=== PATIENT | male | born 1955 | race Caucasian/White ===

== ENCOUNTER 2019-04-06 00:01 | Inpatient (IN) | payer OTHER ==
[~2019-04-06] VITALS: Ht 175.3 cm; Wt 68.5 kg
[~2019-04-06 00:01] MED LIST: ADVAIR 250-501 EACH INH; ALBUTEROL SULFAT2 MG PO; IPRATROPIU0.2 MG/1 M INH; LEVALBUTER1.25 MG/0. INH; MUCINEX1200 MG PO; PREDNISONE 10 M10 M1 PO; PREDNISONE 5 MG5 MG PO; PROAIR HFA8.5 GM INH; SINGULAIR 10 MG10 M1 PO
[2019-04-06 00:26] VITALS: BP 127/88
[2019-04-06 00:26] LABS: ABSOLUTE BASOPHILS 0.1 thou/uL (0.0-0.2); ABSOLUTE EOSINOPHILS 0.1 thou/uL (0.0-0.7); ABSOLUTE LYMPHOCYTES 1.6 thou/uL (0.8-5.3); ABSOLUTE MONOCYTES 1.9 thou/uL (0.0-1.2); ABSOLUTE NEUTROPHILS 14.5 thou/uL (1.6-8.1); BASOPHILS 0.6 %; EOSINOPHILS 0.3 %; HEMOGLOBIN 14.4 gm/dL (14.0-18.0); MCH 29.1 pg (26.0-34.0); MCHC 32.9 g/dL (28.0-37.0); MCV 88.7 fL (80.0-100.0); MONOCYTES 10.3 %; MPV 8.2 fl. (7.2-11.1); NUCLEATED RBCS 0 /100WBC; PLATELET COUNT* 303 thou/uL (150-400); POLYS 79.8 %; RBC 4.96 mil/uL (4.50-6.00); RDW-CV 13.6 % (10.5-14.5); WBC 18.2 thou/uL (4.0-11.0)
[2019-04-06 00:28] LABS: BE -0.9 mmol/L (-2 to +3); PO2 86.9 mmHg (75.0-100.0)
[2019-04-06 00:30] LABS: PCO2 58.1 mmHg (35.0-45.0); pH 7.286 (7.340-7.450)
[2019-04-06 00:33] LABS: APTT 30.8 Seconds (25.0-31.3); INR 1.2; PROTIME 11.9 Seconds (9.20-11.50)
[2019-04-06 00:34] LABS: ANION GAP 11 mmol/L (7-16); BUN 18 mg/dL (7-18); CALCIUM 9.2 mg/dL (8.5-10.1); CHLORIDE 102 mmol/L (98-107); CO2 28 mmol/L (21-32); CREATININE 0.9 mg/dL (0.6-1.3); GLUCOSE 151 mg/dL (70-99); POTASSIUM 4.7 mmol/L (3.5-5.1); SODIUM 141 mmol/L (136-145)
[2019-04-06 00:51] LABS: ALBUMIN 3.5 g/dL (3.4-5.0); ALKALINE PHOSPHATASE 94 U/L (46-116); MAGNESIUM 2.1 mg/dL (1.8-2.4); SGOT 36 U/L (15-37); SGPT 34 U/L (30-65); TOTAL BILIRUBIN 0.9 mg/dL (<0.1-1.0); TOTAL PROTEIN 7.5 g/dL (6.4-8.2); TROPONIN-I LEVEL <0.06 ng/mL (<0.06)
[2019-04-06 07:52] VITALS: BP 101/71
--- NOTE | 2019-04-06 11:41 | 2DMMODE ---
[place] [address] 2 D/M-MODE ECHOCARDIOGRAM Name: OVIDIOTHOM KHAN Room: [place] [address] ADM IN [facility]#: [id number] Admission: 04/06/19 Attend Phys: Franko Sanders Discharge: Date of : 53 Date of Service: 04/06/19 1141 Report #: [id number] THIS REPORT FOR: //name// APPROVED REPORT Study performed: 04/06/2019 09:07:31 EXAM: Comprehensive 2D, Doppler, and color-flow Echocardiogram Patient Location: In-Patient Room #: er Status: routine BSA: 2.02 HR: 104 bpm BP: 101/71 mmHg Rhythm: NSR Other Information Technically limited study due to subcostal views only. Indications Dyspnea 2D Dimensions IVSd: 9.27 (7-11mm) LVOT Diam: 21.74 (18-24mm) LVDd: 46.75 mm PWd: 11.31 (7-11mm) LVDs: 30.07 (25-40mm) Aortic Root: 41.02 mm Aortic Valve AoV Peak Weor.: 0.97 m/s AO Peak Gr.: 3.78 mmHg LVOT Max P.24 mmHg AO Mean Gr.: 2.11 mmHg LVOT Mean P.03 mmHg LVOT Max V: 0.75 m/s AO V2 VTI: 13.50 cm LVOT Mean V: 0.46 m/s DEENA (VTI): 2.91 cm2 LVOT V1 VTI: 10.57 cm Mitral Valve E/A Ratio: 0.82 MV Decel. Time: 150.91 ms MV E Max Wero.: 0.69 m/s MV PHT: 43.76 ms MVA (PHT): 5.03 [place]2 [place] [address] 2 D/M-MODE ECHOCARDIOGRAM Name: THOM NOLAN Room: [address] IN [facility]#: [id number] Admission: 04/06/19 Attend Phys: Franko Sanders Discharge: Date of : 53 Date of Service: 04/06/19 1141 Report #: [id number] Pulmonary Valve PV Peak Wero.: 0.82 m/s PV Peak Gr.: 2.70 mmHg Tricuspid Valve RAP Estimate: 5.00 mmHg TR Peak Gr.: 26.23 mmHg RVSP: 31.00 mmHg PA Pressure: 31.00 mmHg Left Ventricle The left ventricle is normal size. There is normal LV segmental wall motion. There is normal left ventricular wall thickness. Left ventricular systolic function is normal. The left ventricular ejection fraction is within the normal range. LVEF is 50-55%. Grade I - abnormal relaxation pattern. Right Ventricle The right ventricle is normal size. The right ventricular systolic function is normal. Atria The left atrium size is normal. The right atrium size is normal. Aortic Valve Mild aortic valve sclerosis. No aortic regurgitation is present. There is no aortic valvular stenosis. Mitral Valve The mitral valve is normal in structure. There is no mitral valve regurgitation noted. No evidence of mitral valve stenosis. Tricuspid Valve The tricuspid valve is normal in structure. Trace tricuspid regurgitation Pulmonic Valve The pulmonary valve is normal in structure. There is no pulmonic valvular regurgitation. Great Vessels The aortic root is normal in size. IVC is normal in size and collapses >50% with inspiration. Pericardium There [place] [address] 2 D/M-MODE ECHOCARDIOGRAM Name: OVIDIOTOHM Brooke Room: [address] IN [facility].#: [id number] Admission: 04/06/19 Attend Phys: Franko Sanders Discharge: Date of : 53 Date of Service: 04/06/19 1141 Report #: [id number] <Conclusion> The left ventricle is normal size. There is normal left ventricular wall thickness. Left ventricular systolic function is normal. The left ventricular ejection fraction is within the normal range. LVEF is 50-55%. Grade I - abnormal relaxation pattern. The right ventricle is normal size. The left atrium size is normal. Mild aortic valve sclerosis. No aortic regurgitation is present. There is no aortic valvular stenosis. The mitral valve is normal in structure. The tricuspid valve is normal in structure. IVC is normal in size and collapses >50% with inspiration. There is no pericardial effusion. There is normal LV segmental wall motion. <ELECTRONICALLY SIGNED> By: Anthony Rose MD, FACC 04/06/19 1141 1141 1141 Anthony Rose MD, FACC /INF
[2019-04-06 12:00] VITALS: BP 95/66
[2019-04-06 14:54] VITALS: BP 101/65
[2019-04-06 15:10] VITALS: BP 125/80
[2019-04-06] MEDS ORDERED: CLARITIN10 MG PO (16:18)
--- NOTE | 2019-04-06 17:14 | EKG ---
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1955 Requested By: Bernie Ricci Order Number: [id number] MD: Mendoza Andrews Measurements Intervals [place] Rate: 151 P: 64 [place]: 116 QRS: 177 QRSD: 83 T: -32 QT: 257 QTc: 408 Interpretive Statements Sinus tachycardia Right axis deviation Borderline low voltage, extremity leads Abnormal R-wave progression, late transition Minimal ST depression, inferior leads Baseline wander in lead(s) V3 Compared to ECG 01/31/2011 09:51:47 Right-axis deviation now present ST (T wave) deviation now present Ventricular premature complex(es) no longer present Right superior axis no longer present Electronically Signed On 04-06-2019 17:14:47 CDT by Mendoza Andrews [email or web address] <ELECTRONICALLY SIGNED> By: Mendoza Andrews MD, [facility] 04/06/19 1714 0005 0005 Mendoza Andrews MD, [facility] /EPI
[2019-04-06 19:50] VITALS: BP 95/73
[2019-04-07 00:30] VITALS: BP 103/68
[2019-04-07 04:00] VITALS: BP 93/66
[2019-04-07 04:24] LABS: HEMATOCRIT 35.4 % (42.0-52.0); MCH 28.9 pg (26.0-34.0); MCHC 32.5 g/dL (28.0-37.0); MCV 89.1 fL (80.0-100.0); MPV 8.3 fl. (7.2-11.1); RBC 3.98 mil/uL (4.50-6.00); RDW-CV 13.5 % (10.5-14.5); WBC 13.8 thou/uL (4.0-11.0)
[2019-04-07 04:41] LABS: ALBUMIN 2.5 g/dL (3.4-5.0); CALCIUM 9.1 mg/dL (8.5-10.1); CREATININE 0.7 mg/dL (0.6-1.3); MAGNESIUM 2.4 mg/dL (1.8-2.4); POTASSIUM 4.6 mmol/L (3.5-5.1); TOTAL BILIRUBIN 0.2 mg/dL (<0.1-1.0); TOTAL PROTEIN 6.7 g/dL (6.4-8.2)
[2019-04-07 04:45] LABS: HEMOGLOBIN 11.5 gm/dL (14.0-18.0)
[2019-04-07 05:49] LABS: BE 2.7 mmol/L (-2 to +3); PCO2 48.1 mmHg (35.0-45.0); PO2 72.6 mmHg (75.0-100.0); pH 7.388 (7.340-7.450)
[2019-04-07 07:56] VITALS: BP 106/69
--- NOTE | 2019-04-07 09:57 | CON ---
[address] [address] CONSULTATION Name: THOM NOLAN Room: [address] IN .R.#: [id number] Admission: 04/06/19 Attend Phys: Ruth Robertson Discharge: Date of : 53 Report #: [id number] THIS REPORT FOR: //name// CC: Abraham Sanders REASON FOR CONSULTATION: COPD exacerbation. HISTORY OF PRESENT ILLNESS: This is a 63-year-old male patient who had been on oxygen 24/7 two-liter per minute for at least 2 years, maybe more per the . He has also portable oxygen device. He has history of COPD. He is an ex-smoker. He told me it was a while ago when he was evaluated by a pulmonary physician. Most of his care is through his primary care office. He presented to the hospital with few days history of increasing shortness of breath associated with some cough, although not severe and rare wheezes. He just feels fatigued and tired. He told me last week, he received a course of antibiotic and steroids. He improved temporarily, then this symptoms came back. He had low-grade fever around 100 at home per the patient's , but he had no chills. He has no sore throat, no nasal discharge or obstruction or symptoms suggestive of upper respiratory tract infection. He denied any sick contact. His told me that his respiratory status is limited and he does not leave house much because of his functional limitations. During my visit, he was on BiPAP and actually he was tolerating that well. He was protecting the airways and actually provides history through the BiPAP mask. ALLERGIES: No known allergies. HOME MEDICATIONS: He is on Mucinex, Singulair, prednisone daily, albuterol p.o. He is on Advair, ipratropium, ProAir and Xopenex. FAMILY HISTORY: Reviewed with the patient, noncontributory. SOCIAL HISTORY: He does not smoke anymore, although he has significant smoking history in the past, does not drink alcohol. Does not abuse drugs. He admitted that he tried some cannabis oil to help his breathing. PAST MEDICAL HISTORY: COPD, chronic respiratory failure, on home oxygen, emphysema. PAST SURGICAL HISTORY: No major chest surgery. REVIEW OF SYSTEMS: GENERAL: He had some feeling of fever and some change in appetite and weakness. EYES: No visual changes, no lacrimation, no redness, no eye pain. EAR, NOSE AND THROAT: He denied any sore throat, nasal discharge, obstruction, neck pain, dysphagia, [place] [address] CONSULTATION Name: THOM NOLAN Room: [address] IN ..#: [id number] Admission: 04/06/19 Attend Phys: Ruth Robertson Discharge: Date of : 53 Report #: [id number] RESPIRATORY: As above. Negative for hemoptysis. CARDIOVASCULAR: He had dyspnea on exertion, not feeling short of breath, but no palpitation, no chest pain, no edema in the lower extremities. GASTROINTESTINAL: He has no change in bowel habits, no diarrhea, no abdominal pain, no loose stools, no blood in the stools. GENITOURINARY: He had no frequency, no urgency, no discharge. MUSCULOSKELETAL: No deformities. No joint pain, no swelling. SKIN: He has no rash. NEUROLOGIC: He had no focal weakness. He had generalized weakness, but no numbness or tingling. HEMATOLOGIC AND LYMPHATIC: He had no palpable lymph nodes. No skin lumps or bumps. All systems reviewed with the patient, negative other than as mentioned above. PHYSICAL EXAMINATION: VITAL SIGNS: He was on BiPAP at 30%, saturation was 97% on the monitor, blood pressure 101/71, pulse rate of 99, temperature 37.1. GENERAL: He had BiPAP mask in place, but he was awake, alert, protecting the airways and conversing with his at the bedside. HEAD: Normocephalic, atraumatic. EYES: Pupils reactive to light. Not pale or jaundiced. External ear looks healthy and normal. Oral cavity not examined. I did not take the BiPAP mask off. NECK: Trachea is central. Full range of movement. No lymphadenopathy. CHEST: Diminished air movement bilaterally, prolonged expiratory phase, rare end-expiratory wheezes. No tenderness to palpation. HEART: S1, S2, no murmur. ABDOMEN: Benign, soft, lax, nontender, positive bowel sounds. No masses felt, no rebound, no rigidity. EXTREMITIES: Lower extremity: No edema, no calf tenderness. MUSCULOSKELETAL: Normal to inspection. No deformities. No joint swelling. PSYCHIATRIC: Mood and affect slightly anxious, but good insight and judgment. NEUROLOGIC: No focal weakness. SKIN: No rash. LYMPHATICS: No palpable lymph node. LABORATORY DATA: His chest x-ray that was done in the ER showed some basilar infiltrate versus atelectasis. His white blood count is 18.2, hemoglobin 14.4 and platelets of 303. His ABGs on the ____, 7./58/86 ____ was reported to be done on nasal cannula. His PT is 11.9, INR of 1. His creatinine is 0.9, BUN of 18, potassium 4.7, sodium 141. His troponin also is slightly elevated. IMPRESSION: [facility] [address] [place] [address] CONSULTATION Name: THOM NOLAN Room: [address] IN [facility].#: [id number] Admission: 04/06/19 Attend Phys: Ruth Robertson Discharge: Date of : 53 Report #: [id number] 1. Airtd-wu-nffesck hypoxic and hypercapnic respiratory failure. 2. Chronic obstructive pulmonary disease exacerbation. 3. Pulmonary infiltrate. 4. Atelectasis. PLAN: The patient with hypercapnic respiratory failure ____ with chronic respiratory failure. He will be admitted for management. He will be on scheduled IV steroids, scheduled nebulization treatments in addition to p.r.n. treatment. I agree with antibiotic given the pulmonary infiltrate; however, we need to monitor his chest x-ray. Recommend followup on the blood gases at this point, although he is showing hypercapnic respiratory failure on his blood gas, but he is able to tolerate the BiPAP full and he is protecting his airways. I would continue to monitor closely. He would benefit from outpatient PFTs, although he reported he cannot tolerate being in the volume box during the PFTs. Discussed with the patient and his , we will continue to follow along with you. He needs a repeat chest x-ray and ABG in the morning. Thank you for the consult. <ELECTRONICALLY SIGNED> By: Lisa Guardado MD 04/07/19 0957 1135 [id number] joy Thorpe
[2019-04-07 11:30] VITALS: BP 117/80
--- NOTE | 2019-04-07 14:39 | EKG ---
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: : 1955 Requested By: Jessica Naranjo Order Number: [id number] Madeleine MD: Israel Brown Measurements Intervals [place] Rate: 88 P: 42 [place]: 121 QRS: 100 QRSD: 101 T: 82 QT: 371 QTc: 449 Interpretive Statements Sinus rhythm Low voltage, extremity leads Baseline wander in lead(s) V3 Compared to ECG 04/06/2019 00:05:22 Sinus tachycardia no longer present ST (T wave) deviation no longer present Electronically Signed On 04-07-2019 14:38:53 CDT by Israel Brown [email or web address] <ELECTRONICALLY SIGNED> By: Israel Brown MD, [facility] 04/07/19 1438 1321 1321 Israel Brown MD, [facility] /EPI
[2019-04-07 16:00] VITALS: BP 97/76
--- NOTE | 2019-04-07 16:25 | CARDNUC ---
[place] [address] CARDIAC NUCLEAR IMAGING REPORT Name: THOM NOLAN Room: [address] IN [facility]#: [id number] Admission: 04/06/19 Attend Phys: Franko Sanders Discharge: Date of : 53 Date of Service: 04/07/19 1625 Report #: [id number] THIS REPORT FOR: //name// APPROVED REPORT Study performed: 04/07/2019 13:54:21 Exam: Nuclear Stress Test Indication: Dyspnea, Troponin elevation Patient Location: In-Patient Room #: 219 Stress Tech: Gabriela Acuña Stress Nurse: Jeannine Gomez RN Ht: 5 ft 9 in Wt: 146 lbs BSA: 1.81 m2 BMI: 21.55 Medical History Medical History: copd Medications: no cardiac meds Allergies: nkda Cardiac Risk Factors: age, family hx, past hx tobacco Exercise History: Sedentary Stress Test Details Stress Test: Pharmacologic stress testing performed using 0.4 mg of regadenoson per 5 mL given IV over 10 seconds. Reason for pharmacologic stress test: physical limitation. HR Resting HR: 91 bpm Max Heart Rate (APMHR): 156 bpm Max HR Achieved: 114 bpm Target HR (85% APMHR): 132 bpm % of APMHR: 73 Recovery HR: 111 bpm BP Resting BP: 120/82 mmHg Max BP: 112/77 mmHg ECG Resting ECG: Sinus Rhythm Stress ECG: Sinus Tachycardia ST Change: None Arrhythmia: None Recovery ECG: [place] [address] CARDIAC NUCLEAR IMAGING REPORT Name: THOM NOLAN Room: [address]#: [id number] Admission: 04/06/19 Attend Phys: Franko Sanders Discharge: Date of : 53 Date of Service: 04/07/19 1625 Report #: [id number] Change: None Recovery Arrhythmia: None Clinical Reason for Termination: Completed protocol Exercise duration: 0 min sec Exercise capacity: 1 METs The patient tolerated Lexiscan infusion without significant cardiac symptoms. Nurse Comments pt tolerated well. unable to walk on treadmill due to weakened condition Stress ECG Conclusion The baseline 12-lead EKG shows sinus rhythm without significant ST or T wave abnormality. EKGs obtained during and post Lexiscan infusion show sinus rhythm and sinus tachycardia with no significant ST or T wave changes when compared to baseline. There were no stress-induced arrhythmias. NM EXAM: Myocardial Perfusion REST/STRESS Resting Data Rest SPECT myocardial perfusion imaging was performed in supine position 30 minutes following the intravenous injection of 11.78 mCi of Tc-99m Sestamibi. Time of rest injection: 1155 The images were gated to evaluate regional wall motion and calculate left ventricular ejection fraction. Administration Route: IV Administration Site: Left AC Pharmacologic Stress Pharmacologic stress test was performed by injecting Regadenoson 0.4 mg IV push followed by the intravenous injection of 32.7 mCi of Tc-99m Sestamibi. Time of stress injection: 1400 Administration Route: IV Administration Site: Left AC Heart Rate at time of stress injection: 114 bpm. Gated Stress SPECT was performed 45 minutes after stress injection. The images were gated to evaluate regional wall motion and calculate left [place] [address] CARDIAC NUCLEAR IMAGING REPORT Name: THOM NOLAN Room: [address] IN [facility].#: [id number] Admission: 04/06/19 Attend Phys: Franko Sanders Discharge: Date of : 53 Date of Service: 04/07/19 1625 Report #: [id number] Study Quality Study: Good Artifact: Moderate Diaphragmatic artifact Study Data At rest, the left ventricular ejection fraction was 54%.. Post stress, the left ventricular ejection was 63%.. TID = 0.98. Perfusion Perfusion images at rest show a moderate region of photopenia extending from the base to apex of the inferior wall. No other significant resting defects were noted. Stress images show a less pronounced region of photopenia involving the inferior wall. Gated images show normal wall motion. Inferior defect is likely due to diaphragmatic attenuation artifact. Cannot rule out a focal area of infarct. Wall Motion Normal left ventricular wall motion. Nuclear Conclusion ECG Findings: negative for ischemia Clinical Findings: negative for ischemia Nuclear Findings: negative for ischemia Exercise Capacity: not assessed Left Ventricular Function: normal Risk Study: low Myocardial perfusion images show no defects to suggest cardiac ischemia. Global LV systolic function appears normal on gated studies. This is a low risk study. <Conclusion> The baseline 12-lead EKG shows sinus rhythm without significant ST or T wave abnormality. EKGs obtained during and post Lexiscan infusion show sinus rhythm and sinus tachycardia with no significant ST or T wave changes when compared to baseline. There were no stress-induced arrhythmias. <ELECTRONICALLY SIGNED> By: Mendoza Andrews MD, FACC 04/07/19 1625 1625 1625 Mendoza Andrews MD, FACC /INF
[2019-04-07 20:00] VITALS: BP 117/82
[2019-04-08] VITALS: BP 106/71
[2019-04-08 04:00] VITALS: BP 119/72
[2019-04-08 04:56] LABS: HEMOGLOBIN 11.1 gm/dL (14.0-18.0); MCHC 32.6 g/dL (28.0-37.0); MPV 8.1 fl. (7.2-11.1); RBC 3.82 mil/uL (4.50-6.00); RDW-CV 13.4 % (10.5-14.5); WBC 9.7 thou/uL (4.0-11.0)
[2019-04-08 05:21] LABS: CALCIUM 9.2 mg/dL (8.5-10.1); CREATININE 0.6 mg/dL (0.6-1.3); MAGNESIUM 2.3 mg/dL (1.8-2.4); POTASSIUM 4.6 mmol/L (3.5-5.1); TROPONIN-I LEVEL 0.16 ng/mL (<0.06)
[2019-04-08 08:00] VITALS: BP 100/72
[2019-04-08 12:27] VITALS: BP 119/77
[2019-04-08 13:04] LABS: URINE BILIRUBIN NEGATIVE (Negative); URINE BLOOD NEGATIVE (Negative); URINE CLARITY CLEAR; URINE COLOR YELLOW; URINE GLUCOSE-RANDOM NEGATIVE (Negative); URINE KETONES NEGATIVE (Negative); URINE LEUKOCYTES-REFLEX NEGATIVE (Negative); URINE NITRITE-REFLEX NEGATIVE (Negative); URINE PROTEIN TRACE (Negative); URINE SPECIFIC GRAVITY >= 1.030 (1.005-1.030); URINE UROBILINOGEN 0.2 E.U./dl (0.2-1.0)
[2019-04-08 16:51] VITALS: BP 141/79
[2019-04-08 20:00] VITALS: BP 111/71
[2019-04-09] VITALS (7 sets, daily range): BP systolic 102–144; BP diastolic 64–84
[2019-04-10] VITALS: BP 130/81
[2019-04-10 04:00] VITALS: BP 111/72
[2019-04-10 08:00] VITALS: BP 117/82
[2019-04-10 11:30] VITALS: BP 127/82
[2019-04-10 11:55] VITALS: BP 117/82
[2019-04-10] MEDS ORDERED: CEFDINIR300 MG PO (13:51)
[2019-04-10] MEDS ORDERED: VENTOLIN HFA 1818 GM INH (13:59)
[2019-04-10] MEDS ORDERED: PREDNISONE 10 M10 MG PO (14:00)
== END 2019-04-10 16:00 | disposition home or self-care (01) | DRG 177 ==
LOC: M.ERS 00:01 → M.2W 01:32 → M.TBA-ER 01:32 → M.2W 15:07
PROVIDERS: Internal Medicine; Personal Emergency Response Attendant; ADMIT Internal Medicine
PROC: 5A09357 Assistance with Respiratory Ventilation, Less than 24 Consecutive Hours, Continuous Positive Airway Pressure (ICD-10-PCS; principal; 2019-04-06)
DX: J15.6 Pneumonia due to other Gram-negative bacteria (principal); I21.A1 Myocardial infarction type 2; J96.21 Acute and chronic respiratory failure with hypoxia; J96.22 Acute and chronic respiratory failure with hypercapnia; R65.11 Systemic inflammatory response syndrome (SIRS) of non-infectious origin with acute organ dysfunction; J98.11 Atelectasis; J15.9 Unspecified bacterial pneumonia; J43.9 Emphysema, unspecified; J40 Bronchitis, not specified as acute or chronic; Z87.891 Personal history of nicotine dependence; Z99.81 Dependence on supplemental oxygen; Z79.51 Long term (current) use of inhaled steroids; Z79.899 Other long term (current) drug therapy

== ENCOUNTER 2019-07-11 08:18 | Inpatient (IN) | payer OTHER ==
[~2019-07-11] VITALS: Ht 175.3 cm; Wt 68.5 kg
[~2019-07-11 08:18] MED LIST changes: +CEFDINIR300 MG PO; +CLARITIN10 MG PO; +PREDNISONE 10 M10 MG PO; +VENTOLIN HFA 1818 GM INH
[2019-07-11 08:26] VITALS: BP 161/98
[2019-07-11 09:07] LABS: ABSOLUTE BASOPHILS 0.1 thou/uL (0.0-0.2); ABSOLUTE EOSINOPHILS 0.3 thou/uL (0.0-0.7); ABSOLUTE LYMPHOCYTES 2.9 thou/uL (0.8-5.3); ABSOLUTE MONOCYTES 0.9 thou/uL (0.0-1.2); ABSOLUTE NEUTROPHILS 6.1 thou/uL (1.6-8.1); BASOPHILS 0.6 %; EOSINOPHILS 2.8 %; HEMATOCRIT 41.6 % (42.0-52.0); HEMOGLOBIN 14.1 gm/dL (14.0-18.0); LYMPHOCYTES 28.3 %; MCH 29.9 pg (26.0-34.0); MCV 87.9 fL (80.0-100.0); MONOCYTES 8.8 %; MPV 7.2 fl. (7.2-11.1); NUCLEATED RBCS 0 /100WBC; PLATELET COUNT* 315 thou/uL (150-400); POLYS 59.5 %; RBC 4.73 mil/uL (4.50-6.00); RDW-CV 14.1 % (10.5-14.5); WBC 10.2 thou/uL (4.0-11.0)
[2019-07-11 09:14] LABS: APTT 27.2 Seconds (25.0-31.3); PROTIME 10.7 Seconds (9.20-11.50)
[2019-07-11 09:15] LABS: ANION GAP 5 mmol/L (7-16); BUN 15 mg/dL (7-18); CALCIUM 8.8 mg/dL (8.5-10.1); CHLORIDE 101 mmol/L (98-107); CO2 32 mmol/L (21-32); CREATININE 0.8 mg/dL (0.6-1.3); GLUCOSE 113 mg/dL (70-99); POTASSIUM 3.9 mmol/L (3.5-5.1); SODIUM 138 mmol/L (136-145)
[2019-07-11 09:27] LABS: ALBUMIN 3.6 g/dL (3.4-5.0); ALKALINE PHOSPHATASE 79 U/L (46-116); LIPASE 110 U/L (73-393); NT-PRO BRAIN NAT PEPTIDE 48 pg/mL (<300); SGOT 16 U/L (15-37); SGPT 27 U/L (30-65); TOTAL BILIRUBIN 0.3 mg/dL (<0.1-1.0); TOTAL PROTEIN 7.4 g/dL (6.4-8.2); TROPONIN-I LEVEL <0.06 ng/mL (<0.06)
[2019-07-11 10:27] VITALS: BP 117/75
[2019-07-11] MEDS ORDERED: DULERA 200 MCG/13 GM INH (10:53)
[2019-07-11] MEDS ORDERED: PREDNISONE 10 M10 MG PO (10:57)
[2019-07-11 15:49] VITALS: BP 124/70
[2019-07-11 15:50] VITALS: BP 123/79
--- NOTE | 2019-07-11 17:24 | EKG ---
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: [facility] : 1955 Requested By: Pete Cain Order Number: [id number] MD: Mendoza Andrews Measurements Intervals [place] Rate: 97 P: 76 [place]: 131 QRS: 91 QRSD: 96 T: 70 QT: 341 QTc: 433 Interpretive Statements Sinus rhythm Ventricular premature complex Anteroseptal infarct, age indeterminate, possible Baseline wander in lead(s) V1 Compared to ECG 04/07/2019 13:21:45 Ventricular premature complex(es) now present Sinus pause or arrest now present Myocardial infarct finding now present Electronically Signed On 07-11-2019 17:23:47 CDT by Mendoza Andrews [email or web address] <ELECTRONICALLY SIGNED> By: Mendoza Andrews MD, FACC 07/11/19 1723 9 9 Mendoza Andrews MD, FACC /EPI
--- NOTE | 2019-07-11 18:28 | NUR ---
PT ARRIVED TO UNIT AT APPROX 1040 VIA BED, AT BEDSIDE. PT A&O X4, SINUS TACH ON THE MONITOR, LS DIMINISHED WITH WHEEZING THROUGHOUT, REMAINS ON 2LPM VIA NC, FULL ASSESSMENT CHARTED. PT DENIES ANY PAIN OR SOA AT THIS TIME. ORIENTED TO CALL LIGHT AND ROOM.
[2019-07-11 20:00] VITALS: BP 110/80
[2019-07-12] VITALS: BP 96/73
[2019-07-12 04:00] VITALS: BP 112/72
--- NOTE | 2019-07-12 05:09 | NUR ---
PT SLEPT MOST OF SHIFT. ASSESSMENT DOCUMENTED. MEDS GIVEN PER E-DEC. IV PATENT. NO REPORTS OF PAIN. 2L NC WORN THIS SHIFT. WILL CONTINUE WITH PLAN OF CARE.
[2019-07-12 05:28] LABS: HEMATOCRIT 39.8 % (42.0-52.0); HEMOGLOBIN 13.3 gm/dL (14.0-18.0); MCH 29.7 pg (26.0-34.0); MCHC 33.5 g/dL (28.0-37.0); MCV 88.5 fL (80.0-100.0); MPV 7.7 fl. (7.2-11.1); NUCLEATED RBCS 0 /100WBC; PLATELET COUNT* 326 thou/uL (150-400); WBC 10.5 thou/uL (4.0-11.0)
[2019-07-12 05:38] LABS: CALCIUM 8.7 mg/dL (8.5-10.1); CREATININE 0.7 mg/dL (0.6-1.3); POTASSIUM 4.4 mmol/L (3.5-5.1)
[2019-07-12 07:09] LABS: ABSOLUTE LYMPHOCYTES 0.5 thou/uL (0.8-5.3); ABSOLUTE MONOCYTES 0.1 thou/uL (0.0-1.2); ABSOLUTE NEUTROPHILS 9.9 thou/uL (1.6-8.1); MYELOCYTES 2 %; PLATELET ESTIMATE ADEQUATE
[2019-07-12 12:00] VITALS: BP 105/64
--- NOTE | 2019-07-12 12:11 | NUR ---
Pt is A&O. Resides at home with his , continues to work. Independent. Pt wears home o2 through [employer], has a portable concentrator and a neb. Pt uses a cane PRN for longer distances. No hx of HH or SNF. Anticipate dc to home tomorrow, no needs anticipated. Following.
[2019-07-12 16:00] VITALS: BP 116/78
--- NOTE | 2019-07-12 18:38 | NUR ---
ASSUMED PT CARE AT 0700, PT A/OX4, IN ROOM VISITING. PT HAS NOT C/O OF PAIN. VSS. PT ASSESSED ET DOCUMENTED IN CHART. WILL CONT HOURLY ROUNDS, CALL LIGHT IN REACH.
[2019-07-12 19:39] VITALS: BP 137/87
[2019-07-13 00:34] VITALS: BP 112/69
[2019-07-13 04:30] VITALS: BP 96/61
--- NOTE | 2019-07-13 05:16 | NUR ---
PT SLEPT MOST OF SHIFT. ASSESSMENT DOCUMENTED. MEDS GIVEN PER E-MAR. IV PATENT. PT REPORTS DISCOMFORT FROM COUGHING AFTER BREATHING TX BUT RESOLVED. O2 WORN. WILL CONTINUE WITH PLAN OF CARE.
[2019-07-13 09:12] VITALS: BP 112/69
--- NOTE | 2019-07-13 10:00 | NUR ---
ASSUMED CARE AFTER REPORT APPROX 0730. OX4, ABLE TO EXPRESS NEEDS TO STAFF. PRODUCTION SUPV IN PLACE, SR. O2 SAT 95% 2L NC. PATIENT WITH BAGI, TACHYCARDIA WITH ACTIVITY. UP AD TERRY IN ROOM. CALL LIGHT IN REACH. HOURLY ROUNDING FOR SAFETY AND PATIENT NEEDS.
--- NOTE | 2019-07-13 11:11 | NUR ---
Spoke with , anticipate that Pt will be medically stable to dc tomorrow.
[2019-07-13 11:30] VITALS: BP 128/79
[2019-07-13 16:00] VITALS: BP 128/81
--- NOTE | 2019-07-13 18:31 | NUR ---
PATIENT PROGRESSING TOWARD GOALS. POSSIBLE DC TOMORROW. PATIENT UP AD TERRY IN ROOM. BECOMES TACHYCARDIC AND TACHYPNIC WITH EXERTION. NO C/O PAIN, N/V OR OTHER DISTRESS. MEDS PER MAR. CALL LIGHT WITHIN REACH. HOURLY ROUNDING COMPLETED.
[2019-07-13 20:00] VITALS: BP 131/88
[2019-07-14] VITALS (7 sets, daily range): BP systolic 102–125; BP diastolic 63–84
--- NOTE | 2019-07-14 05:52 | NUR ---
PT IS A&O X 4, MAINTAINING 02 STAT ON 2L. HAS HAD LOOSE STOOL X 2 THIS SHIFT. NO C/O PAIN OR DISCOMFORT. PT IS CURRENTLY ALSEEP WITH CALL LIGHT WITHIN REACH, ALL NEEDS HAVE BEEN MET AT THIS TIME.
--- NOTE | 2019-07-14 06:33 | NUR ---
PT IS A&O X4, MAINTAINING O2 SAT ON 2L VIA NC. NO C/O PAIN OR DISCOMFORT, PT SLEPT THROUGH OUT NIGHT, ANTICPATING HOME DISCHARGE TODAY.
--- NOTE | 2019-07-14 11:53 | NUR ---
VSS, ASSUMED CARE IN THE AM, ASSESSMENT PERFORMED AND CHARTED, FALL PRECAUTIONS IN PLACE AND CALL LIGHT IN REACH, PT IS A&O4, ON 2L NC AND UP AD TERRY, DENIES ANY PAIN, IS TRACING SR ON THE MONITOR, PT GOALS ARE TO IMPROVE BREATHING AND SIT UP IN CHAIR. WILL FOLLOW WITH PLAN OF CARE.
[2019-07-14] MEDS ORDERED: IPRATROPIU0.2 MG/1 M INH (15:02)
[2019-07-14] MEDS ORDERED: PREDNISONE 10 M10 MG PO (15:04)
[2019-07-14] MEDS ORDERED: LEVAQUIN 750 M750 MG PO (15:05)
--- NOTE | 2019-07-14 15:20 | NUR ---
Following for d/c planning needs. Physician states that pt will need trilogy for home use. Pt is currently on service with [facility]. Faxed referral to [facility] and spoke with liaison.
--- NOTE | 2019-07-14 16:30 | NUR ---
SPOKE WITH DR BARLOW RE TRILOGY NOT BEING DELIVERED TODAY. DR BARLOW AWARE THAT TRIOLOGY COULD TAKE UP TO 2 WEEKS TO BE DELIVERED. DR BARLOW OK FOR DISCHARGE TODAY.
== END 2019-07-14 17:19 | disposition home or self-care (01) | DRG 189 ==
LOC: M.ERS 08:18 → M.2W 09:17 → M.TBA-ER 09:17 → M.2W 10:41
PROVIDERS: Family Medicine; ADMIT Internal Medicine
DX: J96.21 Acute and chronic respiratory failure with hypoxia (principal); J43.9 Emphysema, unspecified; J20.9 Acute bronchitis, unspecified; Z87.891 Personal history of nicotine dependence; Z79.899 Other long term (current) drug therapy